=== PATIENT | male | born 2000 | race Caucasian/White ===

== ENCOUNTER 2021-02-27 14:37 | Emergency (ER) | payer OTHER, SELFPAY ==
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
[2021-02-27 15:01] VITALS: BP 139/77; PULSE 88; RESP 18; TEMP 36.9; O2SAT 97
[2021-02-27 16:46] VITALS: PULSE 70; RESP 17; O2SAT 100
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
--- NOTE | 2021-02-27 18:56 | PC.NURSE ---
Pt to XRAY via w/c at this time.
[2021-02-27 19:35] VITALS: BP 124/81; PULSE 78; RESP 18; O2SAT 100
== END 2021-02-27 19:37 | disposition home or self-care (01) ==
PROVIDERS: Emergency Provider Nurse Practitioner
DX: S13.4XXA Sprain of ligaments of cervical spine, initial encounter (principal); S39.012A Strain of muscle, fascia and tendon of lower back, initial encounter; V89.2XXA Person injured in unspecified motor-vehicle accident, traffic, initial encounter
CPT/HCPCS: 72125; 99284